=== PATIENT | female | born 1990 | race Caucasian/White ===

== ENCOUNTER 2020-10-12 17:24 | Emergency (ER) | payer BC, OTHER ==
--- NOTE | 2020-10-12 17:59 | EDM.PDOC ---
ED HPI GENERAL MEDICAL PROBLEM - General Chief Complaint: Head Injury Stated Complaint: HIT IN HEAD BY HORSE Time Seen by Provider: 10/12/20 17:25 - History of Present Illness INITIAL COMMENTS - FREE TEXT/NARRATIVE: CHIEF COMPLAINT(S): Head injury HISTORY OF PRESENT ILLNESS: This is a 29-year-old woman without any significant past medical history who comes to the emergency department with a chief complaint of head injury. The patient states that she was working with a horse and it was on its back when he kicked and hit the right side of her head. She denies any loss of consciousness, headache, blurry vision, double vision, numbness, tingling, or weakness. She denies any nausea or vomiting. She denies any other injury. She denies any neck pain, bowel incontinence, urinary incontinence. She states that she continued working with a horse as is happened approximately 2 hours ago and I decided to come to the emergency department. She states that she did have a small amount of bleeding on the right side of her head. She denies any other injury. She states that her tetanus is up-to-date. REVIEW OF SYSTEMS: Constitutional: Denies fever, chills. Eyes: Denies eye pain Ears, Nose, Mouth, & Throat: Denies earache Cardiovascular: Denies chest pain Respiratory: Denies shortness of breath Gastrointestinal: Denies Nausea, vomiting, diarrhea, hematochezia. Genitourinary: Denies hematuria Skin: Positive for laceration to right scalp MSK: Denies joint pain Neurological: Positive for head injury denies blurred vision, loss of consciousness, numbness, tingling, weakness Psychiatric: Denies depression PAST MEDICAL HISTORY: As per history of present illness and as reviewed below otherwise noncontributory. SURGICAL HISTORY: As per history of present illness and as reviewed below otherwise noncontributory. SOCIAL HISTORY: As per history of present illness and as reviewed below otherwise noncontributory. FAMILY HISTORY: As per history of present illness and as reviewed below otherwise noncontributory. EXAMINATION OF ORGAN SYSTEMS/BODY AREAS: Constitutional: Blood pressure is 144/78, heart rate 93, respiratory 16 with an oxygen saturation 98% on room air. Temperature 36.4 General: Overall well-appearing woman who is in no acute distress Psychiatric: Appropriate mood and affect. Eyes: No scleral icterus or conjunctival erythema pupils are equal round reactive to light. Extraocular movements intact. No nystagmus noted. ENMT: Moist mucous membranes. No pharyngeal erythema no blood in the oropharynx. No missing or chipped teeth. Bilateral tympanic membranes without any hemotympanum. Cardiovascular: Regular, rate, and rhythm. No gallops, murmurs, or rubs. Bilateral upper extremity pulses symmetric and intact. No peripheral edema. No JVD. Respiratory: Lungs clear to auscultation bilaterally. No wheezes, rales, or rhonchi. Gastrointestinal: Soft, non-tender, non-distended. Normoactive bowel sounds Genitourinary: No suprapubic tenderness Musculoskeletal: Normal range of motion. There was no cervical, thoracic, or lumbar midline spinal tenderness Skin: There is a 1 cm right lateral scalp laceration without any active bleeding Neurological: AOx4. CN grossly intact. Stregth 5/5 in bilateral upper and lower extremity. Sensation is intact bilaterally in upper and lower extremity. Gait appears normal. MEDICAL DECISION MAKING AND COURSE IN THE ED WITH INTERPRETATION/REVIEW OF DIAGNOSTIC STUDIES: This is a 27-year-old woman without any significant past medical history who comes to the emergency department with right scalp laceration status post being kicked in the head by a horse. Patient is neurologically intact and has no red flag symptoms. At this time we did clear the patient's C-spine clinically. The patient's tetanus is up-to-date. We did clean the scalp wound and placed 2 amparo. I did discuss that the amparo need to remove within 5 to 7 days. She was given strict closed head return precautions. She was amenable discharge at this time and had no further questions. I do not believe any labs or imaging are indicated Laceration Repair Note Repair of the 1 cm right scalp wound was done by myself. Wound was irrigated well with saline. No foreign bodies were noted. The wound was repaired with 2 amparo directed. Wound edges approximated well. DISPOSITION: The patient was discharged home in stable condition. The patient will follow up with primary care physician within 5 to 7 days CONDITION: Fair PROCEDURES: Staple laceration repair FINAL IMPRESSION(S)/DIAGNOSES: 1. Acute closed head injury 2. Acute right scalp laceration status post staple repair Les Lawrence M.D. - Related Data Allergies Allergy/AdvReac Type Severity Reaction Status Date / Time No Known Allergies Allergy Verified 10/12/20 17:32 Home Meds: Home Meds . [No Known Home Meds] 10/12/20 [History] Past Medical History - Infectious Disease History Infectious Disease History: Reports: None Social & Family History - Tobacco Use Tobacco Use Status *Q: Never Tobacco User - Caffeine Use Caffeine Use: Reports: None - Recreational Drug Use Recreational Drug Use: No ED ROS GENERAL - Review of Systems Review Of Systems: See Below ED EXAM, HEAD INJURY - Physical Exam Exam: See Below Course - Vital Signs Last Recorded V/S: Last Vital Signs Temp 36.4 C 10/12/20 17:33 Pulse 93 10/12/20 17:33 Resp 16 10/12/20 17:33 BP 144/78 H 10/12/20 17:33 Pulse Ox 98 10/12/20 17:33 Departure - Departure Time of Disposition: 17:58 Disposition: Home, Self-Care 01 Condition: Fair Clinical Impression: Head injury, Scalp laceration - Discharge Information *PRESCRIPTION DRUG MONITORING PROGRAM REVIEWED*: No *COPY OF PRESCRIPTION DRUG MONITORING REPORT IN PATIENT ALFONSO: No Instructions: Post-Concussion Syndrome, [id number], Head Injury, Adult, [id number], Sutures, [place], or Adhesive Wound Closure, [id number] Referrals: PCP,Unobtain [Primary Care Provider] - Forms: ED Department Discharge Additional Instructions: You evaluate today on an emergent basis. At this time and discussion with you we decided to not obtain a CT. Your neurological system is intact on evaluation today and you had normal vital signs. We did place 2 amparo into the laceration and cleaned out the wound. These need to be removed in 5 to 7 days. If you have any worsening headache, weakness of one extremity or the other, vomiting that does not stop I would like you to return to the emergency department. Otherwise please follow-up with your primary care physician. You may take Tylenol 500 mg to 1000 mg every 6 hours for the next 1 to 2 days and then you can add Motrin if you have no progression of any symptoms. You may also ice the area as it may become swollen 20 minutes 4 times a day. [facility] [address] [place] [id number] [facility] [address] [place] [id number] The patient is informed of any results of their evaluation and diagnostic workup and all questions are answered. They are given discharge instructions and return precautions. The patient is stable for discharge. The patient states they understand and agree with the plan and that they will return if their symptoms get worse or if they have any new concerns. The following information is given to patients seen in the emergency department who are being discharged to home. This information is to outline your options for follow-up care. We provide all patients seen in our emergency department with a follow-up referral. The need for follow-up, as well as the timing and circumstances, are variable depending upon the specifics of your emergency department visit. If you don't have a primary care physician on staff, we will provide you with a referral. We always advise you to contact your personal physician following an emergency department visit to inform them of the circumstance of the visit and for follow-up with them and/or the need for any referrals to a consulting specialist. The emergency department will also refer you to a specialist when appropriate. This referral assures that you have the opportunity for follow-up care with a specialist. All of these measure are taken in an effort to provide you with optimal care, which includes your follow-up. Under all circumstances we always encourage you to contact your private physician who remains a resource for coordinating your care. When calling for follow-up care, please make the office aware that this follow-up is from your recent emergency room visit. If for any reason you are refused follow-up, please contact the [facility] Emergency Department at and asked to speak to the emergency department charge nurse. Sepsis Event Note (ED) - Evaluation Sepsis Screening Result: No Definite Risk - Focused Exam Vital Signs: Vital Signs Temp Pulse Resp BP Pulse Ox 10/12/20 17:33 36.4 C 93 16 144/78 H 98
== END 2020-10-12 18:06 | disposition home or self-care (01) ==
LOC: MW.ED 17:24
DX: S01.01XA Laceration without foreign body of scalp, initial encounter (principal); W55.12XA Struck by horse, initial encounter
CPT/HCPCS: 12001; 99282-25; 99283

== ENCOUNTER 2022-11-03 15:10 | Inpatient (IN) | payer BC ==
[2022-11-03] MEDS ORDERED: Ampicillin 2 GM in Sodium Chloride 0.9% 100 ML IV ONE (17:45)
[2022-11-03] MEDS ORDERED: Water For Irrigation,Sterile 1,000 ML Container IRR PRN (17:45)
[2022-11-03] MEDS ORDERED: Lidocaine 1% 50 ML MDV INJECT PRN (17:45)
[2022-11-03] MEDS ORDERED: Sodium Chloride 0.9% 2.5 ML Syringe FLUSH PRN (17:45)
[2022-11-03] MEDS ORDERED: Butorphanol 1 MG/ML SDV IVPUSH PRN (17:45)
[2022-11-03] MEDS ORDERED: Misoprostol 200 MCG Tab PO PRN (17:45)
[2022-11-03] MEDS ORDERED: Carboprost Tromethamine 250 MCG/1 mL Vial IM PRN (17:45)
[2022-11-03] MEDS ORDERED: Ondansetron 4 MG/2 ML SDV IVPUSH PRN (17:45)
[2022-11-03] MEDS ORDERED: Methylergonovine 0.2 MG/1 ML Amp IM PRN (17:45)
[2022-11-03] MEDS ORDERED: Sodium Chloride 0.9% 20 ML SDV IV PRN (17:45)
[2022-11-03] MEDS ORDERED: Oxytocin/0.9 % Sodium Chloride 30 UNIT/500 ML BAG IV SCH (17:45)
[2022-11-03] MEDS ORDERED: Tranexamic Acid 1,000 MG in Sodium Chloride 0.9% 100 ML IV PRN (17:45)
[2022-11-03] MEDS ORDERED: Sodium Chloride 0.9% 10 ML Syringe FLUSH PRN (17:45)
[2022-11-03] MEDS ORDERED: Ropivacaine/PF 400 MG/200 ML PCA ONE (18:46)
[2022-11-03] MEDS ORDERED: Phenylephrine HCl 0.5 MG/5 ML AMP ONE (18:47)
[2022-11-03] MEDS ORDERED: Dexmedetomidine 200 MCG/2 ML SDV ONE (18:47)
[2022-11-03] MEDS: Lactated Ringers 1,000 ML IV SCH ×2 (18:52→23:29)
[2022-11-03 18:57] LABS: HEMATOCRIT 38.7 % (36.0-46.0); HEMOGLOBIN 13.7 g/dL (12.0-16.0); MEAN CORPUSCULAR HGB CONC 35.4 g/dL (31.0-37.0); MEAN CORPUSCULAR VOLUME 81.8 fL (80.0-98.0); MEAN PLATELET VOLUME 10.7 fL (7.40-12.00); RED BLOOD CELL COUNT 4.73 M/uL (4.30-5.90); WHITE BLOOD CELL COUNT,WBC 27.6 K/uL (4.0-11.0)
[2022-11-03] MEDS ORDERED: ePHEDrine 50 MG/ML SDV IVPUSH PRN ×2 (19:10)
[2022-11-03] MEDS ORDERED: Phenylephrine HCl 0.5 MG/5 ML AMP IVPUSH PRN (19:10)
[2022-11-03] MEDS ORDERED: Ropivacaine HCl/PF 400 MG in Premix Bag 1 BAG EPIDUR SCH (19:15)
[2022-11-03] MEDS: Ampicillin 1 GM in Sodium Chloride 0.9% 50 ML IV SCH (23:29)
[2022-11-04] MEDS ORDERED: Acetaminophen 500 MG Tab PO STA (00:17)
[2022-11-04] MEDS: Lactated Ringers 1,000 ML IV SCH (01:20)
[2022-11-04] MEDS: Ampicillin 1 GM in Sodium Chloride 0.9% 50 ML IV SCH (03:17)
[2022-11-04] MEDS ORDERED: Methylergonovine 0.2 MG/1 ML Amp IM PRN (04:51)
[2022-11-04] MEDS ORDERED: Witch Hazel Medicated Pads 40/Jar TOP PRN (04:51)
[2022-11-04] MEDS ORDERED: Docusate Sodium 100 MG Cap PO PRN (04:51)
[2022-11-04] MEDS ORDERED: Acetaminophen 500 MG Tab PO PRN (04:51)
[2022-11-04] MEDS ORDERED: Benzocaine/Menthol 20%-0.5% Spray 78 GM Cannister TOP PRN (04:51)
[2022-11-04] MEDS ORDERED: Tranexamic Acid 1,000 MG in Sodium Chloride 0.9% 100 ML IV PRN (04:51)
[2022-11-04] MEDS ORDERED: Ibuprofen 400 MG Tab PO PRN (04:51)
[2022-11-04] MEDS ORDERED: Lanolin 100% Cream 7 GM Tube TOP PRN (04:51)
[2022-11-04] MEDS ORDERED: Bisacodyl 10 MG Supp RECTAL PRN (04:51)
[2022-11-04 05:01] LABS: PH,UMBILICAL ARTERIAL 7.22 (7.18-7.38); PH,UMBILICAL VENOUS 7.292 (7.25-7.45)
[2022-11-04] MEDS: Ibuprofen 800 MG Tab PO PRN ×3 (07:36→20:17)
[2022-11-04] MEDS ORDERED: Acetaminophen/oxyCODONE 325-5 MG Tab PO PRN (09:22)
[2022-11-04] MEDS: Acetaminophen/oxyCODONE 325-5 MG Tab PO PRN ×4 (09:31→22:33)
[2022-11-04] MEDS: Prenatal Multivitamin with Calcium/Folic Acid/Iron Tab PO SCH (09:34)
[2022-11-04] MEDS: Amoxicillin 500 MG Cap PO SCH ×2 (13:27→21:15)
[2022-11-05] MEDS: Acetaminophen/oxyCODONE 325-5 MG Tab PO PRN ×2 (02:48→06:56)
[2022-11-05] MEDS: Ibuprofen 800 MG Tab PO PRN ×2 (02:49→10:11)
[2022-11-05] MEDS: Amoxicillin 500 MG Cap PO SCH ×3 (05:28→20:08)
[2022-11-05 06:13] LABS: HEMATOCRIT 30.3 % (36.0-46.0); HEMOGLOBIN 10.4 g/dL (12.0-16.0)
[2022-11-05] MEDS: Prenatal Multivitamin with Calcium/Folic Acid/Iron Tab PO SCH (10:11)
[2022-11-05] MEDS: Acetaminophen 500 MG Tab PO PRN ×2 (12:42→18:12)
== END 2022-11-05 20:41 | disposition home or self-care (01) | DRG 560 ==
LOC: MW.OBCHECK 15:10 → MW.OB 15:12 → MW.OBCHECK 18:14 → OBSVTOIN 11-04 04:15 → MW.OB 11-04 07:39
PROVIDERS: ADMIT Obstetrics & Gynecology; ATTEND Obstetrics & Gynecology
PROC: 10D07Z6 Extraction of Products of Conception, Vacuum, Via Natural or Artificial Opening (ICD-10-PCS; principal; 2022-11-04)
PROC: 0UQGXZZ Repair Vagina, External Approach (ICD-10-PCS; 2022-11-04)
PROC: 3E0R3BZ Introduction of Anesthetic Agent into Spinal Canal, Percutaneous Approach (ICD-10-PCS; 2022-11-04)
PROC: 00HU33Z Insertion of Infusion Device into Spinal Canal, Percutaneous Approach (ICD-10-PCS; 2022-11-04)
DX: O48.0 Post-term pregnancy (principal); Z37.0 Single live birth; Z3A.40 40 weeks gestation of pregnancy; O77.0 Labor and delivery complicated by meconium in amniotic fluid; O76 Abnormality in fetal heart rate and rhythm complicating labor and delivery; O99.824 Streptococcus B carrier state complicating childbirth; O70.0 First degree perineal laceration during delivery
CPT/HCPCS: 36415; 59025; 59409; 82803; 85014; 85018; 85027; 86592; 86850; 86900; 86901; A9270-GY; J0290; J2370; J2795; J3490; J7120